=== PATIENT | female | born 1960 | race Caucasian/White ===

== ENCOUNTER 2022-09-05 06:00 | Outpatient (RCR) | payer MEDICAID, SELFPAY | END 2022-10-05 23:59 | disposition home or self-care (01) | LOC: GPT 06:00 | PROVIDERS: Visit Provider Nurse Practitioner Family | DX: M54.9 Dorsalgia, unspecified (principal); G89.29 Other chronic pain | CPT/HCPCS: 97110; 97140; 97162 ==

== ENCOUNTER → 2022-10-18 13:30 | Outpatient (BNVA) | payer MEDICAID, SELFPAY | PROVIDERS: PCP Nurse Practitioner Family; Visit Provider Nurse Practitioner Family | DX: E03.9 Hypothyroidism, unspecified (principal) | CPT/HCPCS: 80053; 80061; 84439; 84443; 84480; 85025 ==

== ENCOUNTER → 2023-08-03 15:12 | Outpatient (BNVA) | payer MEDICAID, SELFPAY | PROVIDERS: PCP Nurse Practitioner Family; Visit Provider Family Medicine | DX: N39.0 Urinary tract infection, site not specified (principal) | CPT/HCPCS: 81000 ==

== ENCOUNTER 2023-11-29 20:00 | Outpatient (CLI) | payer MEDICAID, SELFPAY | END 2023-11-29 20:01 | disposition home or self-care (01) | LOC: SLEEP 11-30 00:15 | PROVIDERS: PCP Nurse Practitioner Family; Visit Provider Nurse Practitioner | DX: G47.10 Hypersomnia, unspecified (principal) | CPT/HCPCS: 95810 ==